=== PATIENT | female | born 1945 | race Caucasian/White ===

== ENCOUNTER → 2024-01-04 09:00 | Outpatient (REF) | payer OTHER, SELFPAY | LOC: RAD 09:00 | PROVIDERS: ATTENDING PHYSICIAN Internal Medicine Cardiovascular Disease; FAMILY PHYSICIAN Family Medicine | DX: R60.9 Edema, unspecified (principal) | CPT/HCPCS: 93970 ==

== ENCOUNTER → 2024-09-14 07:14 | Outpatient (REF) | payer OTHER, SELFPAY | LOC: HWRAD 07:14 | PROVIDERS: ATTENDING PHYSICIAN Internal Medicine Cardiovascular Disease; FAMILY PHYSICIAN Family Medicine | DX: I10 Essential (primary) hypertension (principal); R09.89 Other specified symptoms and signs involving the circulatory and respiratory systems | CPT/HCPCS: 93306; 93880 ==

== ENCOUNTER → 2025-10-08 11:44 | Outpatient (REF) | payer OTHER, SELFPAY | LOC: PET 11:44 | PROVIDERS: ATTENDING PHYSICIAN Internal Medicine Cardiovascular Disease | DX: R06.09 Other forms of dyspnea (principal); I25.10 Atherosclerotic heart disease of native coronary artery without angina pectoris; I10 Essential (primary) hypertension | CPT/HCPCS: 78431; A9555; J2785 ==

== ENCOUNTER 2025-10-23 06:21 | Day surgery (SDC) | payer OTHER, SELFPAY ==
[2025-10-21 09:00] VITALS: BMI 38.5
[2025-10-21 09:19] LABS: Hematocrit 42.5 % (37.0-47.0); Hemoglobin 13.9 g/dL (12.0-16.0); Mean Corp Hgb Conc. 32.7 g/dL (33.0-37.0); Mean Corpuscular Volume 85.5 fL (81.0-99.0); Nucleated Red Blood Cells % 0 %; Platelet Count 213 10^3/uL (130-400); Red Cell Dist. Width 14.8 % (11.5-14.5)
[2025-10-21 09:54] LABS: ALT (SGPT) 17 U/L (0-35); AST (SGOT) 20 U/L (14-36); Albumin 4.5 g/dl (3.5-5.0); Alkaline Phosphatase 84 U/L (38-126); Blood Urea Nitrogen 18 mg/dl (7-17); Calcium 9.3 mg/dl (8.4-10.2); Carbon Dioxide 30 mmol/L (22-30); Chloride 101 mmol/L (98-107); Estimated Creatinine Clearance 76 ml/min; Glucose 102 mg/dl (70-99); Potassium 4.2 mmol/L (3.5-5.1); Sodium 138 mmol/L (135-145); Total Protein 7.4 g/dl (6.3-8.2); eGFR > 60.00
[2025-10-23] VITALS (11 sets, daily range): BP systolic 123–150; BP diastolic 65–106; BMI 38.1
[2025-10-23] MEDS: LOW STRENGTH ASPIRIN 81 MG PO (07:23)
[2025-10-23] MEDS: NSS 265 ML IV (07:24)
--- NOTE | 2025-10-23 09:15 | ITS.CL.CATH ---
[employer]ning [employer] - Catheterization
Cardiac Catheterization
Procedure Report:
LEFT HEART CATHETERIZATION
Date of Procedure: October 23, 2025
Referring: Sarah Sy.
PROCEDURES:
1. Left heart catheterization, coronary angiogram.
2. Moderate sedation.
INDICATION: Abnormal stress test
ACCESS: Right radial artery, 6Fr. sheath, under US guidance.
HEMODYNAMICS : (mmHg)
AO (s/d) : 140/73
LVEDP : 19
No significant gradient across the aortic valve to suggest aortic stenosis.
CORONARY FINDINGS
Dominance: Codominant
Left Main Trunk (LMT): Large caliber vessel that gives rise to the LAD and LCx branches and is free of angiographic disease.
Left Anterior Descending Artery (LAD): Large caliber vessel that gives off 2 small caliber major diagonal branches as it courses along the anterior inter-ventricular groove before wrapping around the cardiac apex. Previously placed LAD stents are
widely patent. Otherwise there is a mild diffuse atherosclerotic plaque.
Left Circumflex Artery (LCx): Large caliber codominant vessel that gives off 2 major obtuse marginal (OM) branches as it courses along the atrio-ventricular (AV) groove. There is a mild diffuse atherosclerotic plaque.
Right Coronary Artery (RCA): Medium caliber co-dominant vessel that gives rise to the posterior descending artery (RPDA) and postero-lateral ventricular (RPLV) branches distally. The RCA and its branches are free of angiographic disease.
SEDATION: 17 minutes of procedural sedation was utilized. IV Midazolam and IV Fentanyl were administered. An independent certified medical coding specialist was present to assist with and help manage the patient's level of consciousness and physiologic status.
RADIATION SUMMARY: Fluoro Time (min): 2.3, Dose (mGy): 269, DAP (Gy.cm2) : 15.1
Closure Device: There were no immediate intra-procedural complications. The sheath was pulled in the produce laborer and a vascular-band applied to the right wrist for radial artery hemostasis using the patent hemostasis technique.
CONCLUSIONS
1. No obstructive coronary artery disease. Previously placed LAD stents are patent
2. LVEDP is elevated at 19 mmHg.
RECOMMENDATIONS
1. Wean radial band per protocol. Monitor right hand perfusion and for bleeding from the radial site following removal of the vascular-band following trans-radial access.
2. Continue aggressive medical therapy and risk factor modification for secondary CAD prevention.
3. Hydrate with normal saline to mitigate the risk of contrast-induced acute kidney injury.
4. Follow-up with Dr. Tobar
Verena Hammond MD, [facility], [facility]
Copy to: Sarah Sy.
[2025-10-23] MEDS: LASIX 40 MG IV (10:40)
== END 2025-10-23 13:11 | disposition home or self-care (01) ==
LOC: CATH 06:21
PROVIDERS: ATTENDING PHYSICIAN Internal Medicine Interventional Cardiology; FAMILY PHYSICIAN Family Medicine; OTHER PHYSICIAN Internal Medicine Cardiovascular Disease
DX: I25.10 Atherosclerotic heart disease of native coronary artery without angina pectoris (principal); R06.09 Other forms of dyspnea; E78.5 Hyperlipidemia, unspecified; I10 Essential (primary) hypertension; I35.0 Nonrheumatic aortic (valve) stenosis; J45.909 Unspecified asthma, uncomplicated; K44.9 Diaphragmatic hernia without obstruction or gangrene; Z87.11 Personal history of peptic ulcer disease; K58.9 Irritable bowel syndrome, unspecified; K31.7 Polyp of stomach and duodenum; I73.9 Peripheral vascular disease, unspecified; Z96.651 Presence of right artificial knee joint; M19.90 Unspecified osteoarthritis, unspecified site; E89.0 Postprocedural hypothyroidism; Z87.440 Personal history of urinary (tract) infections; N39.3 Stress incontinence (female) (male); D50.9 Iron deficiency anemia, unspecified; E66.9 Obesity, unspecified; Z68.38 Body mass index [BMI] 38.0-38.9, adult; Z79.899 Other long term (current) drug therapy; Z79.82 Long term (current) use of aspirin; Z79.51 Long term (current) use of inhaled steroids; Z79.890 Hormone replacement therapy; Z88.5 Allergy status to narcotic agent; Z88.8 Allergy status to other drugs, medicaments and biological substances; Z90.49 Acquired absence of other specified parts of digestive tract; Z90.710 Acquired absence of both cervix and uterus; Z91.041 Radiographic dye allergy status; Z95.5 Presence of coronary angioplasty implant and graft; R94.39 Abnormal result of other cardiovascular function study
CPT/HCPCS: 99152; 36415; 80053; 85025; 93005; 93458; C1769; Q9967